=== PATIENT | male | born 1995 | race Caucasian/White ===

== ENCOUNTER 2018-05-26 00:58 | Emergency (ER) | payer OTHER ==
[2018-05-26 01:20] VITALS: BP 133/77
[2018-05-26] MEDS ORDERED: KETOROLAC TROMETHAMINE 60 MG/2 ML SDV IM ONE (02:24)
[2018-05-26] MEDS ORDERED: LIDOCAINE 5% (700 MG) TRANSDERMAL ADH..PATCH TP ONE (02:24)
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
== END 2018-05-26 02:45 | disposition home or self-care (01) ==
LOC: ER 00:58
DX: M54.2 Cervicalgia (principal); M54.5 Low back pain; M54.9 Dorsalgia, unspecified; V87.7XXA Person injured in collision between other specified motor vehicles (traffic), initial encounter
CPT/HCPCS: 99283; 96372; J1885